=== PATIENT | female | born 1960 | race American Indian/Alaskan Native ===

== ENCOUNTER 2018-05-13 14:09 | Emergency (ER) | payer BC ==
[2018-05-13] MEDS ORDERED: Sodium Chloride 0.9% 1,000 ML IV STA ×2 (14:38→17:14)
--- NOTE | 2018-05-13 14:40 | ED PDOC ---
Hyperglycemia/Hypoglycemia Time Seen by Provider: 05/13/18 14:21 Chief Complaint (Nursing): High Blood Sugar Chief Complaint (Provider): High sugar History Per: Patient History/Exam Limitations: no limitations Onset/Duration Of Symptoms: Days (today) : The patient does not have any of the infectious symptoms listed except for those marked. Additional Complaint(s): Pt. was sent to the ER after having a high blood sugar at the pcp office today. No nausea, vomit, diarrhea, abd pain. Has increased freq of urination and thirst. No chest pain, dyspnea, weakness, fever. No back pain. Recently adjusted meds from januvia to metformin. Past Medical History Reviewed: Nursing Documentation, Vital Signs Vital Signs: Last Vital Signs Temp 97.4 F L 05/13/18 14:13 Pulse 71 05/13/18 14:13 Resp 16 05/13/18 14:13 BP 148/65 05/13/18 14:13 Pulse Ox 100 05/13/18 14:13 - Medical History PMH: Diabetes - Surgical History Surgical History: No Surg Hx - Family History Family History: States: Unknown Family Hx - Home Medications Home Medications: Ambulatory Orders Medication Instructions Recorded Diazepam [Valium] 5 mg PO Q8H PRN #12 tab 05/18/13 Ibuprofen [Motrin] 600 mg PO Q8 #20 tab 05/18/13 - Allergies Allergies/Adverse Reactions: Allergies Allergy/AdvReac Type Severity Reaction Status Date / Time No Known Allergies Allergy Verified 05/13/18 14:13 Review of Systems ROS Statement: Except As Marked, All Systems Reviewed And Found Negative Genitourinary Female: Positive for: Frequency Physical Exam - Reviewed Nursing Documentation Reviewed: Yes Vital Signs Reviewed: Yes - Physical Exam Appears: Positive for: Non-toxic, No Acute Distress Head Exam: Positive for: ATRAUMATIC, NORMAL INSPECTION, NORMOCEPHALIC Skin: Positive for: Normal Color, Warm, DRY Eye Exam: Positive for: EOMI, Normal appearance, PERRL ENT: Positive for: Normal ENT Inspection Neck: Positive for: Normal, Painless ROM Cardiovascular/Chest: Positive for: Regular Rate, Rhythm Respiratory: Positive for: CNT, Normal Breath Sounds Gastrointestinal/Abdominal: Positive for: Normal Exam, Soft. Negative for: Tenderness Back: Positive for: Normal Inspection. Negative for: L CVA Tenderness, R CVA Tenderness Extremity: Positive for: Normal ROM. Negative for: Tenderness, Pedal Edema Neurologic/Psych: Positive for: Alert, Oriented - ECG O2 Sat by Pulse Oximetry: 100 Pulse Ox Interpretation: Normal - Progress ED Course And Treament: 1441: Stable. AAOx3. Dr. Ochoa to fu on labs/ekg and dispo. Disposition - Clinical Impression Clinical Impression: Hyperglycemia - Patient ED Disposition Is Patient to be Admitted: Transfer of Care - Disposition Disposition: Transfer of Care Disposition Time: 14:41 Condition: STABLE Patient Signed Over To: Meli Ochoa
[2018-05-13 15:14] LABS: BASO % 0.9 % (0.0-2.0); EOS # 0.1 K/uL (0.0-0.7); EOS % 2.4 % (0.0-4.0); HEMOGLOBIN 12.5 g/dL (12.0-16.0); LYMPH # 0.9 K/uL (1.0-4.3); LYMPH % 21.1 % (20.0-40.0); MEAN CELL VOLUME 87.3 fl (81.0-99.0); MEAN CORPUSCULAR HEMOGLOBIN 28.9 pg (27.0-31.0); MEAN CORPUSCULAR HGB CONC 33.2 g/dL (33.0-37.0); MEAN PLATELET VOLUME 9.4 fl (7.2-11.7); MONO # 0.3 K/uL (0.0-0.8); MONO % 6.9 % (0.0-10.0); NEUT # 2.9 K/uL (1.8-7.0); NEUT % 68.7 % (50.0-75.0); RBC 4.31 Mil/uL (3.80-5.20); RED CELL DISTRIBUTION WIDTH 14.1 % (11.5-14.5); WHITE BLOOD COUNT 4.2 K/uL (4.8-10.8)
[2018-05-13 15:24] LABS: VENOUS BLOOD GAS BASE EXCESS 5.1 mmol/L (0.0-2.0); VENOUS BLOOD GAS PCO2 47 mmHg (40-60); VENOUS BLOOD GAS PO2 40 mm/Hg (30-55); VENOUS BLOOD PH 7.42 (7.32-7.43)
--- NOTE | 2018-05-13 15:25 | ED PDOC ---
- Laboratory Results Result Diagrams: 05/13/18 15:11 05/13/18 15:11 - ECG O2 Sat by Pulse Oximetry: 100 (RA) Pulse Ox Interpretation: Normal Medical Decision Making Medical Decision Making: Time: 1500 -- Patient presented initially on referral from PMD due to hyperglycemia. Patient signed out to me by Dr. Sewell, pending labs and EKG. Patient now also reporting three weeks of generalized chest pain. Will rule out cardiac ideology. Patient receiving fluids and reassess. 18:15 Patient with improved blood sugar and normal labs. She will follow up with PMD. Encouraged to discuss adjustment of medications with PMD. Rx for Clotrimazole diane as pt reports yeast infection. Scribe Attestation: Documented by Tyra Swanson, acting as a scribe for Meli Ochoa MD. Provider Scribe Attestation: All medical record entries made by the Scribe were at my direction and personally dictated by me. I have reviewed the chart and agree that the record accurately reflects my personal performance of the history, physical exam, medical decision making, and the department course for this patient. I have also personally directed, reviewed, and agree with the discharge instructions and disposition. Disposition - Clinical Impression Clinical Impression: Hyperglycemia, Vaginitis - POA Present On Arrival: None - Disposition Disposition: Routine/Home Disposition Time: 18:24 Condition: IMPROVED Prescriptions: Clotrimazole [Clotrimazole 3] 21 gm VG HS #3 cream.appl Instructions: Hyperglycemia, Adult (DC) Forms: [employer] (Khmer) Print Language: SYRIAN
[2018-05-13 15:26] LABS: INR 0.9; PROTHROMBIN TIME 10.3 Seconds (9.8-13.1)
[2018-05-13 15:29] LABS: PARTIAL THROMBOPLASTIN TIME 31.1 Seconds (25.6-37.1)
[2018-05-13 15:32] LABS: ALB/GLOB RATIO 1.1 (1.0-2.1); ALBUMIN 3.7 g/dL (3.5-5.0); ALT/SGPT 28 U/L (9-52); AST/SGOT 15 U/L (14-36); BLOOD UREA NITROGEN 13 mg/dl (7-17); CALCIUM 8.9 mg/dL (8.4-10.2); GFR NON-AFRICAN AMERICAN > 60
[2018-05-13 18:46] VITALS: BP 173/90; PULSE 67; RESP 18; TEMP 98.6; O2SAT 98
--- NOTE | 2018-05-14 22:04 | CARD ---
APPROVED REPORT Date of service: 05/13/2018 EKG Measurement Heart [id number] <Conclusion> Normal sinus rhythm Incomplete RBBB Inferior infarct, age undetermined Abnormal ECG
== END 2018-05-13 18:45 | disposition home or self-care (01) ==
LOC: H.ER 14:09
DX: E11.9 Type 2 diabetes mellitus without complications (principal); N76.0 Acute vaginitis
CPT/HCPCS: 80053; 82803; 82948; 84484; 85025; 85610; 85730; 93005; 99283; J7030